=== PATIENT | female | born 1990 | race Caucasian/White ===

== ENCOUNTER 2021-08-10 11:20 | Emergency (ER) | payer OTHER ==
[~2021-08-10] VITALS: Ht 154.9 cm; Wt 59.0 kg
[~2021-08-10 11:20] MED LIST: GAVISCON LIQUI355 ML; PEPCID COM1 TAB.CHEW
== END 2021-08-10 15:12 | disposition home or self-care (01) ==
LOC: ER 11:20
DX: O20.8 Other hemorrhage in early pregnancy (principal); Z3A.01 Less than 8 weeks gestation of pregnancy; Z20.822 Contact with and (suspected) exposure to COVID-19

== ENCOUNTER 2021-10-14 08:01 | Emergency (ER) | payer OTHER ==
[~2021-10-14] VITALS: Ht 154.9 cm; Wt 59.0 kg
[2021-10-14] MEDS ORDERED: ONDANSETRON HCL4 MG PO (08:29)
== END 2021-10-14 09:17 | disposition home or self-care (01) ==
LOC: ER 08:01
DX: O99.891 Other specified diseases and conditions complicating pregnancy (principal); G56.02 Carpal tunnel syndrome, left upper limb; E16.2 Hypoglycemia, unspecified; Z3A.13 13 weeks gestation of pregnancy

== ENCOUNTER 2022-01-22 14:45 | Outpatient (CLI) | payer OTHER ==
[~2022-01-22 14:45] MED LIST changes: +ONDANSETRON HCL4 MG PO
[2022-01-22] MEDS ORDERED: PRENATABS RX T1 EACH PO (15:08)
[2022-01-23] MEDS ORDERED: MACROBID 100 M100 MG PO (11:48)
== END 2022-01-23 12:56 | disposition home or self-care (01) ==
LOC: OBS/DEL 14:45
PROVIDERS: ATTEND Specialist
DX: O26.893 Other specified pregnancy related conditions, third trimester (principal); Z3A.28 28 weeks gestation of pregnancy; M54.9 Dorsalgia, unspecified

== ENCOUNTER 2022-03-30 07:25 | Inpatient (IN) | payer OTHER ==
[~2022-03-30] VITALS: Ht 154.9 cm; Wt 70.8 kg
[~2022-03-30 07:25] MED LIST changes: +MACROBID 100 M100 MG PO; +PRENATABS RX T1 EACH PO
== END 2022-04-01 12:28 | disposition home or self-care (01) | DRG 807 ==
LOC: LDR 07:25 → OB/GYN 07:25
PROVIDERS: ADMIT Specialist; ATTEND Specialist
PROC: 10E0XZZ Delivery of Products of Conception, External Approach (ICD-10-PCS; principal; 2022-03-30)
PROC: 0UQG7ZZ Repair Vagina, Via Natural or Artificial Opening (ICD-10-PCS; 2022-03-30)
PROC: 4A1HXCZ Monitoring of Products of Conception, Cardiac Rate, External Approach (ICD-10-PCS; 2022-03-30)
DX: O71.4 Obstetric high vaginal laceration alone (principal); Z37.0 Single live birth; Z3A.37 37 weeks gestation of pregnancy; Z20.822 Contact with and (suspected) exposure to COVID-19

== ENCOUNTER 2022-06-24 18:11 | Emergency (ER) | payer OTHER ==
[~2022-06-24] VITALS: Ht 154.9 cm; Wt 63.5 kg
== END 2022-06-24 20:31 | disposition home or self-care (01) ==
LOC: ER 18:11
DX: R10.31 Right lower quadrant pain (principal)

== ENCOUNTER 2023-04-09 10:53 | Emergency (ER) | payer OTHER ==
[~2023-04-09] VITALS: Ht 154.9 cm; Wt 63.5 kg
[2023-04-09] MEDS ORDERED: GUAIFENESIN 200 MG/10 ML BLIST.PACK PO STA (12:04)
[2023-04-09] MEDS ORDERED: METHYLPREDNISOLONE SOD SUCC 125 MG VIAL IM STA (12:04)
[2023-04-09] MEDS ORDERED: ACETAMINOPHEN 500 MG GEL..CAP PO STA (12:04)
[2023-04-09] MEDS ORDERED: IPRATROPIUM/ALBUTEROL SULFATE 3 ML AMPUL.NEB IH SCH (12:15)
[2023-04-09 12:57] LABS: HEMATOCRIT 40.7 % (36.0-45.00); HEMOGLOBIN 13.9 g/dL (12.0-15.00); MEAN CELL VOLUME 87.9 fL (80.00-100.00); MEAN CORPUSCULAR HGB CONC 34.1 g/dl (32.0-36.0); PLATELET COUNT 319 K/uL (150-450); RED BLOOD COUNT 4.63 M/uL (4.00-6.00); RED CELL DISTRIBUTION WIDTH 14.2 % (11.5-14.5)
[2023-04-09 13:48] LABS: ALBUMIN 3.5 gm/dL (3.4-5.0); BILIRUBIN TOTAL 0.32 mg/dL (0.3-1.2); CALCIUM 9.7 mg/dL (8.5-10.1); CREATININE SERUM 0.55 mg/dL (0.55-1.02); GFR 129.78; GLOBULINA 4.4 G/DL (2.4-3.5); POTASSIUM 3.79 mEq/L (3.5-5.1); TOTAL PROTEIN 7.9 gm/dL (6.4-8.2)
[2023-04-09] MEDS ORDERED: levoFLOXacin IN DEXTROSE 5 % 5 MG/ML PIGGYBAG IV STA (14:51)
== END 2023-04-09 17:38 | disposition home or self-care (01) ==
LOC: ER 10:53
PROVIDERS: General Practice
DX: J18.9 Pneumonia, unspecified organism (principal); R05.9 Cough, unspecified; Z20.822 Contact with and (suspected) exposure to COVID-19; E16.1 Other hypoglycemia